=== PATIENT | female | born 1995 | race African-American/Black ===

== ENCOUNTER 2017-04-06 11:15 | Emergency (ER) | payer BC ==
[~2017-04-06] VITALS: Ht 162.6 cm; Wt 65.0 kg
[~2017-04-06 11:15] MED LIST: BCPILLS PO
[2017-04-06 11:30] VITALS: TEMP 36.9; Ht 162.6 cm; Wt 65.0 kg
--- NOTE | 2017-04-06 13:25 | EMERGENCY ROOM VISIT NOTE ---
History Report prepared by Cortez: Tano Rodriguez Under the Supervision of: Dr. Kwabena Alfonso M.D. First contact with patient: 12:53 Chief Complaint: FLU LIKE SX Stated Complaint: FLU SX,DEHYDRATED,WEAK,SORE THROART,BRUNA History of Present Illness The patient is a 21 year old female who presents to the Emergency Room with complaints of worsening flu like symptoms over the past week. The patient states that she was feeling better a couple of days ago, and last night it worsened. She states that she is feeling weak, she is coughing up mucous, she has a sore throat and a runny nose. She additionally notes that she is hot and cold while she is sleeping, though she has not had a fever. The patient denies any nausea, vomiting, and diarrhea. The patient states that she is currently on her period, and there is no chance for . She has a history of asthma. The patient states that she shared a drink with someone a week and a half ago. Source of History: patient Onset: a week ago Position: other (global) Quality: other (flu like symptoms) Timing: worsening Associated Symptoms: + sorethroat, + cough, + weakness, No nausea, No vomiting, No diarrhea Note: Associated symptoms: runny nose Review of Systems See HPI for pertinent positives and negatives. A total of ten systems were reviewed and were otherwise negative. Past Medical & Surgical Medical Problems: (1) Asthma Family History Patient reports no known family medical history. Social History Smoking Status: Never Smoker Marital Status: single Housing Status: lives with friends Occupation Status: [employer] student Current/Historical Medications No Active Prescriptions or Reported Meds Allergies Coded Allergies: Acetaminophen (Unverified Allergy, Unknown, THROAT CLOSES, 04/06/17) Iodine (Unverified Allergy, Unknown, UNKNOWN, 04/06/17) Oxycodone (Unverified Allergy, Unknown, THROAT CLOSES, 04/06/17) Penicillins (Unverified Allergy, Unknown, THROAT CLOSES, 04/06/17) Physical Exam Vital Signs Date Time Temp Pulse Resp B/P (MAP) Pulse Ox O2 Delivery O2 Flow Rate FiO2 04/06/17 13:56 78 16 116/83 98 Room Air 04/06/17 11:30 36.9 85 18 111/81 99 Physical Exam Physical Exam GENERAL: She is oriented to person, place, and time. She appears well- developed and well-nourished. She does not appear distressed. ____ HENT: Exam performed. Head: Normocephalic and atraumatic. Right Ear: External ear normal. No mastoid tenderness. Left Ear: External ear normal. No mastoid tenderness. Mouth/Throat: The oropharynx is clear and moist. No trismus in the jaw. No dental abscesses or uvula swelling. No oropharyngeal exudate or tonsillar abscesses. ____ EYES: Conjunctivae and EOM are normal. Pupils are equal, round, and reactive to light. Right eye exhibits no discharge. Left eye exhibits no discharge. No scleral icterus. ____ NECK: Normal range of motion. Neck supple. No JVD present. No spinous process tenderness present. No carotid bruit present. No rigidity. No tracheal deviation and normal range of motion present. No Brudzinski's sign and no Kernig 's sign noted. ____ CV: Normal rate, regular rhythm, normal heart sounds and intact distal pulses. There is no peripheral edema. Palpable radial pulses bue. ____ PULM/CHEST: Effort normal and breath sounds normal. No respiratory distress. No stridor. She has no wheezes. She has no rales. Chest Wall: She exhibits no tenderness. ____ ABD: The abdomen is soft. Bowel sounds are normal. She has no distension. No mass is present. There is no tenderness. There is no rebound, no guarding, no Al's sign and no tenderness at McBurney's point. Rovsig negative MUSC/SKEL: Normal range of motion. There is no peripheral edema, tenderness or deformity. LYMPH: No cervical adenopathy. ____ NEURO: She is alert and oriented to person, place, and time. She has normal strength. No cranial nerve deficit or sensory deficit. Coordination and gait normal. GCS eye subscore is 4. GCS verbal subscore is 5. GCS motor subscore is 6. cerbellar tests wnl. ____ SKIN: Skin is warm and dry. She is not diaphoretic. ____ PSYCH: She has a normal mood and affect. Her behavior is normal. Judgment and thought content normal. ____ Medical Decision & Procedures ER Provider Diagnostic Interpretation: Radiology results as stated below per my review and radiologist interpretation: TWO VIEW CHEST CLINICAL HISTORY: Cough. FINDINGS: PA and lateral chest radiographs are obtained. No prior studies are available for comparison at the time of dictation. The cardiomediastinal silhouette is unremarkable. The lungs and pleural spaces are clear. There is no pneumothorax. The bony thorax appears intact. IMPRESSION: No active disease in the chest. Electronically signed by: Isidro Norton M.D. 04/06/2017 1:44 PM Dictated Date/Time: 04/06/2017 1:44 PM Laboratory Results Test 04/06/17 13:15 04/06/17 14:50 Monoscreen NEG (NEG) Urine Color YELLOW Urine Appearance CLEAR (CLEAR) Urine pH 7.0 (4.5-7.5) Urine Specific [place] 1.020 (1.000-1.030) Urine Protein NEG (NEG) Urine Glucose (UA) NEG (NEG) Urine Ketones NEG (NEG) Urine Occult Blood 1+ (NEG) Urine Nitrite NEG (NEG) Urine Bilirubin NEG (NEG) Urine Urobilinogen NEG (NEG) Urine Leukocyte Esterase NEG (NEG) Urine WBC (Auto) 1-5 /hpf (0-5) Urine RBC (Auto) 5-10 /hpf (0-4) Urine Hyaline Casts (Auto) 0 /lpf (0-5) Urine Epithelial Cells (Auto) 0-5 /lpf (0-5) Urine Bacteria (Auto) NEG (NEG) Urine Test NEG (NEG) Laboratory results reviewed by ri ED Course 1258: The patient was evaluated in room A3. A complete history and physical exam was performed. 1418: VSS. Repeat exam including abdominal exam within normal limits. She feels better and is waiting for here monospot and urine tests. 1508: VSS. Repeat abdominal exam was normal. Labs within normal limits. Urine shows blood, though the patient states that she is currently on her menstrual period. Patient states that the symptoms have been going on and off for the past few weeks, therefore she is out of the window for Tamiflu. DISCHARGE - Plan of care discussed with patient and questions answered. The patient was given both verbal and printed discharge instructions. The patient verbalized understanding and ability to comply. The patient is to seek outpatient follow up as noted in the discharge instructions. The patient verbalized understanding and ability to comply. The patient is discharged in stable condition. The patient was instructed to return for worsening symptoms. Medical Decision VSS. Repeat abdominal exam was normal. Labs within normal limits. Urine shows blood, though the patient states that she is currently on her menstrual period. Patient states that the symptoms have been going on and off for the past few weeks, therefore she is out of the window for Tamiflu dc w/ f/u pcp Medication Reconcilliation Current Medication List: was personally reviewed by me Blood Pressure Screening Patient's blood pressure: Normal blood pressure Impression Primary Impression: Upper respiratory infection Scribe Attestation The scribe's documentation has been prepared under my direction and personally reviewed by me in its entirety. I confirm that the note above accurately reflects all work, treatment, procedures, and medical decision making performed by me. The chart was completed utilizing [employer] Speech voice recognition software. Grammatical errors, random word insertions, pronoun errors, and incomplete sentences are an occasional consequence of this system due to software limitations, ambient noise, and hardware issues. Any formal questions or concerns about the content, text, or information contained within the body of this dictation should be directly addressed to the physician for clarification. Departure Information Dispostion Home / Self-Care Prescriptions No Active Prescriptions or Reported Meds Referrals [facility] (PCP) Forms HOME CARE DOCUMENTATION FORM, IMPORTANT VISIT INFORMATION, School Instructions, Work Instructions Patient Instructions ED URI Viral, My [facility] Health Problem Qualifiers Primary Impression: Upper respiratory infection URI type: unspecified viral URI Qualified Codes: J06.9 - Acute upper respiratory infection, unspecified
--- NOTE | 2017-04-06 13:46 | DIAGNOSTIC IMAGING REPORT ---
TWO VIEW CHEST CLINICAL HISTORY: Cough. FINDINGS: PA and lateral chest radiographs are obtained. No prior studies are available for comparison at the time of dictation. The cardiomediastinal silhouette is unremarkable. The lungs and pleural spaces are clear. There is no pneumothorax. The bony thorax appears intact. IMPRESSION: No active disease in the chest. Electronically signed by: Isidro Norton M.D. 04/06/2017 1:44 PM Dictated Date/Time: 04/06/2017 1:44 PM
[2017-04-06 13:56] VITALS: BP 116/83; PULSE 78; O2SAT 98
== END 2017-04-06 15:34 | disposition home or self-care (01) ==
LOC: C.EDB 11:17 → C.EDA 15:34
DX: J06.9 Acute upper respiratory infection, unspecified (principal); J45.909 Unspecified asthma, uncomplicated